=== PATIENT | female | born 1950 | race Caucasian/White ===

== ENCOUNTER 2020-11-23 10:38 | Outpatient (CLI) | payer MEDICARE, SELFPAY ==
--- NOTE | 2020-11-23 10:58 | MR_ITS ---
WS: [id number] MRI HEAD WITHOUT CONTRAST TECHNIQUE: Sagittal T1, T2 axial, T2 axial FLAIR, axial and coronal T1 images, axial susceptibility w eighted imaging, axial diffusion weighted images, and coronal T2 images were obtained. CLINICAL INFORMATION: MILD COGNITIVE IMPAIRMENT COMPARISON: CT FINDINGS: No evidence of restricted diffusion to suggest acute ischemia. Ventricular system and basal cisterns are patent. Moderate small vessel changes with moderate parenchymal volume loss. Chronic lacunar infa rct in the left frontal subcortical white matter. A few tiny chronic lacunar infarcts in the cerebell um left greater than right. Normal vascular flow voids at the skull base. No extra-axial fluid collec tions. Paranasal sinuses and mastoid air cells are well aerated. No hemosiderin on the susceptibility weight ed images. Mild symmetric atrophy involving the temporal lobes and hippocampal formations. Normal opt ic chiasm and pituitary infundibulum. Normal cavernous sinuses and Meckel's cave. MR/MR head wo con* [id number] IMPRESSION: 1. No evidence of restricted diffusion to suggest acute ischemia. 2. Moderate small vessel changes with moderate parenchymal volume loss. 3. Chronic lacunar infarct in the left subcortical frontal white matter. 4. Small vessel changes in the cherelle. 5. A few tiny chronic lacunar infarcts in the cerebellum left greater than rig ht. 6. No hemosiderin on susceptibly weighted images. 7. Mild symmetric atrophy involving the temporal lobes and hippocampal formati ons. No asymmetric hippocampal atrophy.
== END 2020-11-23 10:39 | disposition home or self-care (01) ==
LOC: RADWPI 10:46
PROVIDERS: PCP Physician Assistant; Visit Provider Physician Assistant
DX: G31.84 Mild cognitive impairment of uncertain or unknown etiology (principal); I63.81 Other cerebral infarction due to occlusion or stenosis of small artery
CPT/HCPCS: 70551

== ENCOUNTER 2020-12-08 13:39 | Outpatient (CLI) | payer MEDICARE, SELFPAY ==
--- NOTE | 2020-12-08 13:43 | MM_ITS ---
WS: [id number] BILATERAL DIGITAL SCREENING MAMMOGRAPHY WITH CAD CLINICAL INFORMATION: SCREENING HISTORY: Screening mammogram. No current complaints. COMPARISON: TECHNIQUE: Bilateral CC and MLO views. FINDINGS: Scattered fibroglandular densities bilaterally. No suspicious focal mass, asymmetry, calcifications, or architectural distortion. No evidence of malignancy. Vascular calcification. MM/[place] [id number] IMPRESSION: BI-RADS: 2-Benign FOLLOW UP: 1 Year Follow-up Recommend return to annual screening mammography.
--- NOTE | 2020-12-08 14:40 | XR_ITS ---
WS: [id number] DEXA (DUAL ENERGY X-RAY ABSORPTIOMETRY) Bone mineral density was performed using a [email or web address] machine. HISTORY: POST MENOPAUSAL COMPARISON: None available. Lumbar spine BMD (L1-L4): 1.236 g/cm2 T score: 0.5 Z score: 1.6 Total hip BMD: Left: 1.085 g/cm2. T score: 0.6 Z score: 1.6 Right: 1.065 g/cm2. T score: 0.5 Z score: 1.4 10 year probability of a major osteoporotic fracture is 7%. RIGHT convex curvature lumbar spine. XR/XR DEXA axial skeleton* [id number] IMPRESSION: NORMAL BONE MINERAL DENSITY based upon the WHO classification for females.
== END 2020-12-08 13:40 | disposition home or self-care (01) ==
LOC: RADSHAW 13:42
PROVIDERS: PCP Physician Assistant; Visit Provider Physician Assistant
DX: Z12.31 Encounter for screening mammogram for malignant neoplasm of breast (principal); Z78.0 Asymptomatic menopausal state
CPT/HCPCS: 77067; 77080

== ENCOUNTER → 2021-07-08 07:59 | Outpatient (BNVA) | payer MEDICARE, SELFPAY | PROVIDERS: PCP Physician Assistant; Visit Provider Obstetrics & Gynecology | DX: N81.10 Cystocele, unspecified (principal); N81.4 Uterovaginal prolapse, unspecified; N81.6 Rectocele; Z20.822 Contact with and (suspected) exposure to COVID-19 | CPT/HCPCS: 87635 ==

== ENCOUNTER 2021-07-13 09:58 | Observation (INO) | payer MEDICARE, SELFPAY ==
[2021-07-08 10:27] VITALS: BMI 27.9
[2021-07-08 11:35] LABS: Basophils % 0.4 %; Eosinophils # 0.2 10^3/uL (0.0-0.8); Hematocrit 42.7 % (37.0-47.0); Hemoglobin 14.1 g/dL (11.5-15.3); Lymphocytes # 2.2 10^3/uL (0.8-4.8); Lymphocytes % 40.8 %; Mean Corpuscular Hemoglobin 31.5 pg (28.0-34.0); Mean Corpuscular Volume 95.3 fl (81-99); Mean Platelet Volume 9.8 fL (7.4-10.4); Monocytes # 0.5 10^3/uL (0.2-0.9); Monocytes % 8.7 %; Neutrophils # 2.52 10^3/uL (1.8-7.7); Neutrophils % 45.9 %; Nucleated Red Blood Cells % 0 %; Platelet Count 252 10^3/cmm (130-400); Red Blood Count 4.48 10^6/uL (4.1-5.3); Red Cell Distribution Width 12.1 % (12.1-15.1); White Blood Count 5.5 10^3/uL (4.0-10.0)
[2021-07-08 11:42] LABS: Alanine Aminotransferase 16 U/L (0-33); Albumin Level 3.9 g/dL (3.5-5.2); Alkaline Phosphatase 88 IU/L (35-105); Aspartate Amino Transferase 23 U/L (0-32); Blood Urea Nitrogen 12 mg/dL (8-23); Calcium 8.9 mg/dL (8.5-10.5); Carbon Dioxide 26 mmol/L (22-29); Chloride 106 mmol/L (98-107); Creatinine Clr Calc Pharmacy 75.1487; Globulin 3.4 g/dL (1.3-4.6); Glomerular Filtration Rate 71.1 mL/min (90-130); Glucose 76 mg/dL (65-115); Osmolality Calculated 287 mOsm/kg (285-295); Sodium 139 mmol/L (136-145); Total Bilirubin 0.3 mg/dL (0.15-1.2); Total Protein 7.3 g/dL (6.6-8.7)
[2021-07-08 11:52] LABS: Add Urine Microscopic? YES; Bilirubin Urine Neg (Negative); Blood Urine Neg (Negative); Glucose Urine UA Norm (Normal); Ketones Urine Negative (Negative); Leukocyte Esterase Urine 2+ (Negative); Nitrate Urine Negative (Negative); Protein Urine Neg (Negative); Urine Appearance Clear (CLEAR); Urine Color Straw (Yellow); Urobilinogen Urine Norm (Negative); pH Urine 7 (5-7)
[2021-07-08 11:53] LABS: Add Urine Culture? Yes; Bacteria Urine 2+ /hpf; Squamous Epithelial Cell Urine 0-4 /hpf (0-5)
--- NOTE | 2021-07-08 13:40 | P.ANESASSM_ITS ---
Pre-Anesthetic Assessment Pre-Anesthetic Assessment: Height/Weight: Height 1.73 m Weight 83.461 kg Preop Diagnosis: Complete uterine prolapse, cystocele & rectocele stage IV, pelvic pain and Proposed Procedure: Operation Date: 07/13/21 08:15 Proposed Procedures p Total Vaginal Hysterectomy and vaginal vault suspension [id number] n81.4 n81.10 n81.6(Not Applicable) - David Solorio MD s bilateral Salpingo Oophorectomy (Open)(Bilateral) - MD samira Joyner poss Anterior Repair(Not Applicable) - MD samira Joyner poss Posterior Repair(Not Applicable) - David Solorio MD s Possible sub urethral sling(Not Applicable) - David Solorio MD Was Beta Tono taken within 24 hours: N/A Was Clonidine taken within 24 hours: N/A Social: Social History: No alcohol and No tobacco Exam: Pre-Anes Outpt Exam: alert, oriented x 3, clear to auscultation b ilaterally and regular rate & rhythm Airway: Submandibular: WNL Cervical ROM: WNL MP: 2 Dentition: False History/ROS: No significant history except as noted CV/HEM: CV/HEM: Anemia Anesthetic Plan: ASA status: 2 Anesthesia: General Risk of > 500 ml blood loss (7ml/kg in children): Yes, adequate IV access and fluids planned PFSH Anesthesia PFSH: Family History Father CHF (congestive heart failure) Diabetes Hypertension Grandmother Cancer Paternal -- bone cancer Stroke Paternal Family/Other Cancer Paternal Uncle -- unsure Ovarian cyst Maternal Aunt Family/Other Cancer Maternal Aunt -- unsure if it was cervical, ovarian or uterine cancer Sister Chronic kidney disease (CKD) Diabetes Sister Diabetes Thyroid disease Mother Hypertension Thyroid disease Brother Stroke Brother Stroke Grandfather Stroke Paternal Denies family history of Clotting disorder Hyperlipidemia Bleeding disorder Data Anesthesia CBC & Chem 7: 07/08/21 11:17 07/08/21 11:17 Other Labs: Laboratory Results - last 48 hr 07/08/21 07/08/21 07/08/21 10:40 11:17 11:17 WBC 5.5 RBC 4.48 Hgb 14.1 Hct 42.7 MCV 95.3 MCH 31.5 MCHC 33.0 RDW 12.1 Plt Count 252 MPV 9.8 Neut % (Auto) 45.9 Lymph % (Auto) 40.8 [place] % (Auto) 8.7 Eos % (Auto) 4.0 Baso % (Auto) 0.4 Neut # (Auto) 2.52 Lymph # (Auto) 2.2 [place] # (Auto) 0.5 Eos # (Auto) 0.2 Baso # (Auto) 0.0 Nucleated RBC % (auto) 0 Nucleated RBCs # 0.0 Sodium 139 Potassium 4.0 Chloride 106 Carbon Dioxide 26 Anion Gap 11.0 BUN 12 Creatinine 0.8 GFR Calculation 71.1 L Glucose 76 Calculated Osmolality 287 Calcium 8.9 Total Bilirubin 0.3 AST 23 ALT 16 Alkaline Phosphatase 88 Total Protein 7.3 Albumin 3.9 Globulin 3.4 Urine Color Straw Urine Appearance Clear Urine pH 7 Ur Specific [place] 1.000 L Urine Protein Neg Urine Glucose (UA) Norm Urine Ketones Negative Urine Blood Neg Urine Nitrate Negative Urine Bilirubin Neg Urine Urobilinogen Norm Ur Leukocyte Esterase 2+ H Urine RBC None Urine WBC 10-15 H Ur Squamous Epith Cells 0-4 H Amorphous Sediment Not Reportable Urine Bacteria 2+ H Cardiac Studies: No Data to Display
[2021-07-13] VITALS (19 sets, daily range): BP systolic 116–162; BP diastolic 59–86; PULSE 57–80; RESP 8–20; TEMP 36.4–36.8; O2SAT 91–99
[2021-07-13] MEDS: sodium chloride 0.9% 1,000 ML 30 ML IV (06:30)
[2021-07-13] MEDS: scopolamine 1.5 Patch 1 PATCH TRANSDERMA (06:30)
--- NOTE | 2021-07-13 06:37 | P.ANESUD_ITS ---
Pre-Anesthetic Update Pre-Anesthetic Assessment: Date of Surgery/Procedure: 07/13/21 Preop Abbie gnosis: Complete uterine prolapse, cystocele & rectocele stage IV, pelvic pain and Proposed Procedure: Operation Date: 07/13/21 07:00 Proposed Procedures p Total Vaginal Hysterectomy and vaginal vault suspension [id number] 20790 n81.4 n81.10 n81.6(Not Applicable) - Lisandra Ramos MD s bilateral Salpingo Oophorectomy (Open)(Bilateral) - Lisandra Ramos MD s poss Anterior Repair(Not Applicable) - David Solorio MD s poss Posterior Repair(Not Applicable) - David Solorio MD s Possible sub urethral sling(Not Applicable) - David Solorio MD Any changes to Pre-Anesthetic Assessment?: No Last Intake: Intake Last Liquid Date 07/12/21 Last Liquid Time 20:00 Last Solid Date 07/12/21 Last Solid Time 20:00 Vitals: Temperature 97.9 F 07/13/21 06:10 Temperature Source Temporal Artery S can 07/13/21 06:10 Pulse Rate 79 07/13/21 06:10 Respiratory Rate 18 07/13/21 06:10 Pulse Oximetry 95 07/13/21 06:10 Oxygen Delivery Me thod 07/13/21 06:10 Exam: Pre-Anes Outpt Exam: alert, oriented x 3, clear to auscultation bilaterally and regular rate & rhythm Cardiac Studies: No Data to Display
--- NOTE | 2021-07-13 06:44 | P.HP_ITS ---
Providers/Chief Complaint Primary Care Provider: Kaitlynn Taylor Chief Complaint: Total vaginal hsyterectomy, bilateral salpingo-oop History of Present Illness Katelynn Westbrook is a 71 year old female who first saw me in april with complaints of bladder protrusion. She reports that she has been having spotting for about three months. The last couple of days had been a little heavier. She had a normal ultrasound and normal pap smear. She's never had an abnormal. She reports that her biggest complaint is low pelvic cramping that radiates to her back. She was found to have third degree prolapse and has been scheduled for a total vaginal hysterectomy with bilateral salpingoophorectomy, possible anterior and or posterior repair, mid urethral sling and Dr. Solorio will be performing a sacrospinous ligament fixation. She has been scheduled for surgery on 07/13/21 Review of Systems General: Reports: 10 or more systems reviewed and unremarkable except in HPI and below Medications/Allergies Home Medications Medication Instructions Recorded Confirmed Last Taken Type cholecalciferol (vitamin D3) 25 25 mcg PO DAILY 05/02/21 07/13/21 07/12/21 History mcg (1,000 unit) capsule aelbolhz-qinwhjf-pbxk-iron 18 1 tab PO DAILY tab 05/02/21 07/13/21 07/12/21 History mg-FA 400 mcg-vit K 25 mcg tablet cyanocobalamin (vitamin B-12) 50 50 mcg PO DAILY 07/08/21 07/13/21 07/12/21 History mcg tablet Allergies Allergy/AdvReac Type Severity Reaction Status Date / Time No Known Allergies Allergy Verified 07/13/21 06:06 PFSH Acute PFSH: Family History Father CHF (congestive heart failure) Diabetes Hypertension Grandmother Cancer Paternal -- bone cancer Stroke Paternal Family/Other Cancer Paternal Uncle -- unsure Ovarian cyst Maternal Aunt Family/Other Cancer Maternal Aunt -- unsure if it was cervical, ovarian or uterine cancer Sister Chronic kidney disease (CKD) Diabetes Sister Diabetes Thyroid disease Mother Hypertension Thyroid disease Brother Stroke Brother Stroke Grandfather Stroke Paternal Denies family history of Clotting disorder Hyperlipidemia Bleeding disorder Vitals/I&O/Wt Last Vital Signs Temp 97.9 F 07/13/21 06:10 Pulse 79 07/13/21 06:10 Resp 18 07/13/21 06:10 Pulse Ox 95 07/13/21 06:10 Physical Exam Const: COMMON NORMALS: no acute distress, average body habitus, patient oriented x3, no limitations, healthy appearing, alert and well nourished GENERAL APPEARANCE: cooperative, comfortable, well kempt and well developed ORIENTATION/CONSCIOUSNESS: Yes awake, Yes oriented to person, Yes oriented to place and Yes oriented to time Neck/C-Spine: COMMON NORMALS: full ROM and supple Resp: COMMON NORMALS: normal respiratory effort and clear to auscultation bilaterally EFFORT & INSPECTION: Yes able to speak in complete sentences Cardio: COMMON NORMALS: regular rate and regular rhythm GI: COMMON NORMALS: Normal to inspection, nondistended, normoactive bowel sounds present, Soft to palpation and non-tender : COMMON NORMALS: Yes normal external appearance, Yes normal appearance of the vagina, Yes normal appearance of the cervix, Yes normal bimanual exam, Yes No adnexal tenderness and Yes no masses PELVIC SUPPORT: Cystocele: 3rd degree, Rectocele: 3rd degree and Uterine prolapse: 3rd degree Extremity: COMMON NORMALS: no clubbing, cyanosis or edema and no calf tenderness Psych: COMMON NORMALS: mental status grossly normal, Normal thought process present, cooperative, normal affect and speech normal APPEARANCE: Yes grossly normal and Yes well kempt ATTITUDE: Yes calm and Yes engaged ACTIVITY/MOTOR BEHAVIOR: Yes appropriate eye contact SPEECH: Yes normal speech Data : 07/08/21 11:17 07/08/21 11:17 A&P Assessment and plan (1) Complete uterine prolapse: Plan total vaginal hysterectomy with bilateral salpingoophorectomy, mid urethral sling, possible anterior and or posterior repair. Dr Solorio will be performing a sacrospinous ligament fixation. Risks, benefits and alternatives to procedure were discussed with the patient including but not limited to: pain, bleeding, infection, development of a blood clot or pulmonary embolism, damage to bowel, bladder, ureters, blood vessels, formation of scar tissue or even . . These are the most common complications, but there may be other, unforseen complications that could arise during surgery. The patient accepts these risks and desires to proceed. Status: Acute Attestations Medical Necessity Statement*: The patient should only require one night in the hospital Coding Level of Care Code Acute Bag Machine Helper for Chg Fwd Diagnoses Complete uterine prolapse N81.3
[2021-07-13] MEDS: ceFOXitin 2,000 MG in sodium chloride 0.9% (plus) 50 ML 100 MG IV (07:05)
[2021-07-13] MEDS: vasopressin 20 unit/mL INJ 4 UNIT INJECTION (08:00)
--- NOTE | 2021-07-13 10:09 | P.OP_ITS ---
Operative Report Date of procedure: July 13, 2021 Pre-op Diagnosis: Complete uterine prolapse, cystocele & rectocele stage IV, pelvic pain and Procedure Done: Anterior colporrhaphy augmented with allograft. Single incision midurethral sling Posterior colporrhaphy. Sacrospinous ligament fixation. CYstoscopy. Implants: Coloplast Altis single incision midurethral sling Surgeon: David Solorio MD Estimated blood loss (mL): 30 IV fluids (mL): 1,500 Procedure: After the total vaginal hysterectomy and bilateral salpingo- oophorectomy was performed by Dr. Ramos and vaginal cuff was closed. I proceeded to perform anterior colporrhaphy with single incision mid urethral sling and posterior colporrhaphy with sacrospinous fixation. The anterior vaginal mucosa beneath the midurethra was infiltrated with 0.5% Marcaine with epinephrine. A vertical midline incision was made beneath the midurethra, nearly 1.5 cm length. Careful submucosal dissection was performed bilaterally up to the interior portion of the inferior pubic ramus. The insertion of adductor longus tendon on the patient?s pubic ramus was identified as reference land graeme. Palpated the notch along the internal edge of ischiopubic ramus where the adductor longus tendon and the inferior pubic ramus meet. The Altis single incision sling (SIS) was selected. With thin porcine graft the mesh of the sling was lined anteriorly and posteriorly with the graft. Then the needle of the Coloplast Altis SIS inserted aiming at the location of this notch. One of the integrated self-fixating tips place onto the needle by sliding it over the end of the needle. The needle/sling assembly was inserted toward the location of identified reference notch making sure that the flat of the handle is perpendicular to the desired path. The needle was tracked along the posterior surface of the ischiopubic ramus until the midline graeme on the mesh is approximately at the midline position under the urethra. The needle was removed and the same was repeated on the contralateral side until the appropriate sling tension under the urethra was achieved ensuring that the mesh lays flat. The needle was removed and vaginal incision was closed in a running interlocking fashion with 2-0 Vicryl. The vaginal mucosa was then injected in the midline with normal saline. The vaginal mucosa was scored in the midline with the Bovie approximately 1 cm medial to the urethral meatus to 1 cm distal to the vaginal cuff. This vaginal mucosa was then undermined and then incised in the midline with the Metzenbaum scissors. The lateral aspects of the vaginal mucosa were then grasped with the Allis clamps and the vaginal mucosa was then dissected off the underlying fascia with the Metzenbaum scissors. Again, there was noted to be quite a bit of oozing at the incision, which was controlled with cautery. After adequate dissection was performed, bilaterally. A Coloplast allograft was modified at time of application to fit spacea, 3 x 4 cm piece . Coloplast allograft placed in front of cystocele ready to be implanted with the Basement Membrane facing the vagina mucosa. Suture is placed at distal end of graft and placed towards vaginal cuff. Final suture is placed on proximal portion of the graft to complete the placement overlying the bladder. Then Interrupted vertical mattress sutures of 0 Vicryl were used to elevate the cystocele superiorly. The excessive vaginal mucosa was then trimmed with the Metzenbaum scissors and the vaginal mucosa was then reapproximated in the running interlocking fashion with 2-0 Vicryl. Then proceeded to performe the posteriorcolporrhaphy and sacrospinous fixation. Posterior colpoperineorrhaphy was performed with Allis clamps to grasp hymenal caruncles to allow 2-3 fingerbreadths caliber; infiltrated with 1% Lidocaine with epinephrine before triangular incision to excise fibrotic subdermal rectovaginal tissue from old perineal laceration. Fascia dissected off towards vaginal cuff and deemed weakened and thinned-out in midline; colporrhaphy performed with interrupted mattress 0-Vicryl sutures towards perineal body after a separate crown stitch with 0-Vicryl performed. Field irrigated; hemostasis secured before vaginal incision closed running-locked with 3-0 Vicryl. The posterior vaginal mucosa is opened in the routine fashion as described previously in Posterior Repair. A finger is inserted through the incision in the posterior vaginal mucosa, dissecting out the rectovaginal space (RVS). The right rectal pillar (RRP) is identified. The rectal pillar can be bluntly perforated either with the finger or with the tip of a long Kaitlynn clamp. A Ela retractor is used for exposing the rectovaginal space in order to enter the pararectal space with retraction of the cardinal ligament, vagina, and rectum. Displacing the rectum to the left and the cardinal ligament and ureter anteriorly. A sponge dissector is used to bluntly dissect the sacrospinous ligament removing areolar tissue. The ischial spine was palpated directly, and a area approximately 2 cm medial to the spine was selected for insertion of the Anchorsure transvaginal sacrospinous fixation system. One end of the suture of Anchoresure system inserted through the sacrospinous ligament is placed through the muscular layer of the vagina. In a similar manner, the second suture is placed. The opposite end of the suture in the sacrospinous ligament is left free and held on a small hemostat. Then traction on this suture will draw the vaginal vault directly to the ligament, where a square knot affixes it to the sacrospinous ligament. After the denice stich is tied the second safety stich is tied. Then the colporrhaphy/vaginal repair is carried out in routine fashion. Then the Butts catheter was removed and cystoscope was inserted. The bladder was filled with sterile water. Complete evaluation of the bladder mucosa was performed noting no lacerations, dimpling, tears, bleeding of the mucosa or muscular layers. Both ureteral orifices were identified. Prompt excretion of urine from both ureteral orifices was noted. Cystoscope was withdrawn. The Butts catheter was replaced. Excellent hemostasis was obtained.
--- NOTE | 2021-07-13 10:10 | PM.OP ---
Operative Report Date of procedure: July 13, 2021 Pre-op Diagnosis: Complete uterine prolapse, cystocele & rectocele stage IV, pelvic pain and Post-op diagnosis: same Post-op Findings: complete uterine prolapse Procedure Done: total vaginal hysterectomy, right salpingoophorectomy, cystoscopy Specimens removed/disposition: uterus and right fallopian tube and ovary to pathology Surgeon: Lisandra Ramos Anesthesia: General Estimated blood loss (mL): 20 IV fluids (mL): 1,500 Urine output (mL): 850 Complications: none Condition: stable Disposition: floor Procedure: The patient was taken to the operating room where general anesthesia was administered and found to be adequate. She was prepped and draped in the normal sterile fashion in the dorsal lithotomy position in [facility]. A Butts catheter was placed. A weighted speculum was placed into the vagina and the anterior and posterior lip of the cervix was grasped with a Varma tenaculum. 10 mL of dilute Pitressin was injected at the vesicovaginal junction. A circumferential incision was made at the vesicovaginal junction and the vaginal mucosa reflected cephalad. The posterior peritoneum was entered sharply with the Metzenbaum scissors and the long weighted speculum replaced. Using the Roly clamps the uterosacral ligaments were clamped cut and suture-ligated. Then sequentially the uterine arteries and cardinal ligaments were clamped cut and suture-ligated. A single-tooth tenaculum was used to deliver the uterus. The utero-ovarian ligaments were clamped cut and suture-ligated bilaterally and the specimen was removed. The bilateral fallopian tubes and ovaries were visualized and found to be normal. The peritoneum was closed with a pursestring using 2-0 Vicryl. The vaginal cuff was closed with 0 Vicryl in a running locked pattern incorporating the uterosacral ligaments into the lateral aspects of the vaginal cuff. See Dr Solorio's note for his portion of the procedure. The Butts catheter was removed and the cystoscope advanced into the bladder. The patient was given indigo carmine and bilateral spill was noted. There were no injuries or deficits noted in the bladder. The cystoscope was removed and the Butts was replaced. Vaginal packing was placed for good hemostasis. Tolerated the procedure well. Sponge lap and needle counts were correct x3. She was taken to the recovery room in stable condition.
--- NOTE | 2021-07-13 10:23 | SUR.PHASEI ---
PT JUST NOW AWAKES TO VOICE , ORAL AIRWAY OUT , GOOD RESP EFFORT NOTED PT VERBALLY DENIES PAIN AND NAUSEA, ABD SOFT WITH TULIO PAD IN PLACE D/I ACUÑA TO DD WITH BLUE CLEAR URINE NOTED. BILAT SCDS ON AND WORKING
[2021-07-13] MEDS: ondansetron 2 mg/ML SDV 2 mL 4 MG IVP ×2 (12:10→16:36)
[2021-07-13] MEDS: ketorolac 30 mg/mL INJ IVP ×2 (12:10→17:54)
[2021-07-13] MEDS: oxyCODONE-APAP 5-325 mg Tablet PO ×2 (12:28→20:26)
--- NOTE | 2021-07-13 13:41 | ANE.PACU2 ---
Inpatient post-anesthesia follow up: Airway intact: Yes Vital signs: Temperature 97.6 F Pulse Rate 67 Respiratory Rate 18 Blood Pressure 122/59 Pulse Oximetry 99 Oxygen Delivery Me thod Nasal Cannula Oxygen Flow Rate 3 Fraction of Inspir ed Oxygen Hydration adequate: Yes Nausea and vomiting: No Pain level: 2 Mental status: Baseline
[2021-07-13] MEDS: dextrose 5%-lactated ringers 1,000 ML 125 ML IV (15:15)
[2021-07-13] MEDS: docusate sodium 100 mg Capsule PO (17:54)
[2021-07-14] MEDS: ketorolac 30 mg/mL INJ IVP (00:35)
[2021-07-14 04:08] VITALS: BP 129/78; PULSE 71; RESP 15; TEMP 36.9
[2021-07-14 05:16] VITALS: RESP 18
[2021-07-14] MEDS: oxyCODONE-APAP 5-325 mg Tablet PO ×2 (05:16→16:48)
[2021-07-14 06:11] LABS: Hematocrit 33.4 % (37.0-47.0); Hemoglobin 11.2 g/dL (11.5-15.3); Mean Corpuscular HGB Conc 33.5 g/dL (30.0-36.0); Mean Corpuscular Hemoglobin 31.6 pg (28.0-34.0); Mean Corpuscular Volume 94.4 fl (81-99); Mean Platelet Volume 10.6 fL (7.4-10.4); Platelet Count 176 10^3/cmm (130-400); Red Blood Count 3.54 10^6/uL (4.1-5.3); Red Cell Distribution Width 12.3 % (12.1-15.1); White Blood Count 10.9 10^3/uL (4.0-10.0)
--- NOTE | 2021-07-14 07:49 | PM.DCS ---
Discharge Providers Date of Admission: 07/13/21 09:58 Date of Discharge: July 14, 2021 Attending Provider at Admission: Lisandra Ramos MD Attending Provider at Discharge: David Solorio MD Primary Care Provider: Kaitlynn Taylor Diagnoses at Discharge Discharge Diagnosis (1) Complete uterine prolapse: Status: Acute Reason for Visit Reason for Visit: Total vaginal hsyterectomy, bilateral salpingo-oop Hospital Course Hospital Course The patient was admitted for surgery. She did well postoperatively and was ready for discharge Physical Exam Narrative: EXAM NARRATIVE: The patient is doing well this morning. No concerns or complaints. Const: COMMON NORMALS: no acute distress, average body habitus and patient oriented x3 GENERAL APPEARANCE: cooperative, comfortable and well kempt ORIENTATION/CONSCIOUSNESS: Yes awake, Yes oriented to person, Yes oriented to place and Yes oriented to time Resp: COMMON NORMALS: normal respiratory effort EFFORT & INSPECTION: Yes able to speak in complete sentences Extremity: COMMON NORMALS: no clubbing, cyanosis or edema and no calf tenderness Neuro: COMMON NORMALS: patient oriented x3 SENSORIUM/ORIENTATION: Yes oriented to person, Yes oriented to place and Yes oriented to time Psych: APPEARANCE: Yes well kempt Urinary Catheter Management^: Butts: Cath Placed During This Visit: yes, but has since been removed by the nurse Reason for Continuing Indwelling Catheter: Decision to DC Catheter Urinary Catheter Date of Insertion: 07/13/21 Urinary Catheter Time of Insertion: 07:40 Date Urinary Catheter Removed: 07/14/21 Time Urinary Catheter Discontinued: 06:50 Discharge Data Data Completed and Pending: Pending at discharge Category Date Time Status ES surgery / GI i mages Routine Exams 07/13/21 09:46 Ordered Pathology: Surgic al [PTH] Routine Pth 07/13/21 10:13 Received Labs from last 24 hours 07/14/21 07/13/21 05:00 07:20 WBC 10.9 H RBC 3.54 L Hgb 11.2 L Hct 33.4 L MCV 94.4 MCH 31.6 MCHC 33.5 RDW 12.3 Plt Count 176 MPV 10.6 H Blood Type AB Positive Rho(D) Type Positive Antibody Screen Negative Vitals: Last Vital Signs Temp 98.5 F 07/14/21 04:08 Pulse 71 07/14/21 04:08 Resp 18 07/14/21 05:16 BP 129/78 07/14/21 04:08 Pulse Ox 95 07/13/21 15:55 Discharge Plan Discharge Patient Disposition: Home Condition: Stable Prescriptions: New oxycodone-acetaminophen 5-325 mg Tablet 1 tab PO Q4H PRN (Reason: Moderate To Severe Pain) Qty: 24 RF: 0 Continued Vitamin B-12 50 mcg tablet 50 mcg PO DAILY RF: 0 cholecalciferol (vitamin D3) 25 mcg (1,000 unit) capsule 25 mcg PO DAILY RF: 0 One-A-Day Women's Complete 18 mg-400 mcg- 25 mcg tablet 1 tab PO DAILY RF: 0 Discharge Orders: Discharge Order (Routine); Ordered 07/14/21 Ordered By: Lisandra Ramos Patient Instructions: Opioid Safety Discharge Attestations Time Spent in Discharge Care*: less than 30 min Quality Metrics Clinical Quality Measures During this hospital stay, did patient experience: None Coding Level of Care Code Acute Chg FW DC note Exam Expanded Problem Focused Diagnoses Complete uterine prolapse N81.3
[2021-07-14] MEDS: ibuprofen 800 mg tablet PO ×2 (10:42→16:49)
[2021-07-14] MEDS: docusate sodium 100 mg Capsule PO ×2 (10:42→16:48)
[2021-07-14 10:45] VITALS: BP 147/72; PULSE 56; RESP 16; TEMP 36.7
[2021-07-14 16:45] VITALS: BP 168/77; PULSE 62; RESP 17; TEMP 36.3; O2SAT 96
[2021-07-14 16:48] VITALS: RESP 17
== END 2021-07-14 16:55 | disposition home or self-care (01) ==
LOC: OBGYN 09:59
PROVIDERS: Admitting Provider Obstetrics & Gynecology; PCP Physician Assistant; Visit Provider Obstetrics & Gynecology
PROC: (CPT 58262; principal; 2021-07-13 07:00)
PROC: (CPT 58720; 2021-07-13 07:00)
PROC: 0JQC0ZZ Repair Pelvic Region Subcutaneous Tissue and Fascia, Open Approach (ICD-10-PCS; CPT 57240; 2021-07-13 07:00)
PROC: (CPT 57250; 2021-07-13 07:00)
PROC: (CPT 57288; 2021-07-13 07:00)
PROC: (CPT 57282; 2021-07-13 07:00)
DX: N81.3 Complete uterovaginal prolapse (principal); Z82.49 Family history of ischemic heart disease and other diseases of the circulatory system; Z83.3 Family history of diabetes mellitus
CPT/HCPCS: 57260; 57282; 57288; 58262; 36415; 51702; 51798; 80053; 81001; 85025; 85027; 86850; 86900; 87086; 88307; 96365; C1713; C1762; G0378; J0360; J0690; J0694; J1100; J1170; J1200; J1885; J2270; J2405; J2704; J2710; J3010; J3490; J7030

== ENCOUNTER → 2021-08-22 14:00 | Outpatient (BNVA) | payer MEDICARE, SELFPAY | PROVIDERS: PCP Physician Assistant; Visit Provider Obstetrics & Gynecology | DX: N90.89 Other specified noninflammatory disorders of vulva and perineum (principal); R30.0 Dysuria; Z98.890 Other specified postprocedural states; R30.9 Painful micturition, unspecified | CPT/HCPCS: 81000; 87077; 87086; 87184 ==

== ENCOUNTER → 2022-10-13 10:21 | Outpatient (BNVA) | payer MEDICARE, SELFPAY | PROVIDERS: PCP Physician Assistant; Visit Provider Obstetrics & Gynecology | DX: R32 Unspecified urinary incontinence (principal); R39.9 Unspecified symptoms and signs involving the genitourinary system | CPT/HCPCS: 81000; 87086 ==

== ENCOUNTER 2022-11-21 14:16 | Outpatient (CLI) | payer MEDICARE, SELFPAY ==
--- NOTE | 2022-11-21 14:28 | MM_ITS ---
WS: [id number] Bilateral screening 3D tomosynthesis digital mammogram, 11/21/2022 Clinical Data: SCREENING Comparison: 12/08/2020, 07/10/2019. Findings: The breast parenchymal pattern shows glandular tissue. No spiculated masses or clustered calcificatio ns are seen. There are no secondary signs of carcinoma. MM/[place] [id number] Impression: 1. Negative bilateral mammogram unchanged. 2. Recommend annual screening mammograms. BIRADS: 1-Negative FOLLOW UP: 1 Year Follow-up The CAD price checker was used.
== END 2022-11-21 14:17 | disposition home or self-care (01) ==
LOC: RAD 14:17
PROVIDERS: PCP Physician Assistant; Visit Provider Family Medicine
DX: Z12.31 Encounter for screening mammogram for malignant neoplasm of breast (principal)
CPT/HCPCS: 77063; 77067

== ENCOUNTER 2023-11-12 13:32 | Outpatient (CLI) | payer MEDICARE, SELFPAY ==
--- NOTE | 2023-11-12 13:34 | XR_ITS ---
WS: [id number] DEXA (DUAL ENERGY X-RAY ABSORPTIOMETRY) Bone mineral density was performed using a Kelan machine. HISTORY: POSTMENOPAUSAL COMPARISON: 12/08/2020 Lumbar spine BMD (L1-L4): 1.251 g/cm2 T score: 0.6 Z score: 1.6 Total hip BMD: Left: 1.087 g/cm2. T score: 0.6 Z score: 1.7 Right: 1.062 g/cm2. T score: 0.4 Z score: 1.5 10 year probability of a major osteoporotic fracture is 11.8%. Compared to the prior study from 12/08/2020. Lumbar spine bone mineral density has increased by 1.2%. Bilateral hips bone mineral density is unchanged. IMPRESSION: NORMAL BONE MINERAL DENSITY based upon the WHO classification for females. No significant change sinc e the prior examination.
== END 2023-11-12 13:33 | disposition home or self-care (01) ==
LOC: RAD 13:32
PROVIDERS: PCP Physician Assistant; Visit Provider Family Medicine
DX: Z78.0 Asymptomatic menopausal state (principal)
CPT/HCPCS: 77080

== ENCOUNTER → 2024-09-04 08:30 | Outpatient (BNVA) | payer MEDICARE, SELFPAY | PROVIDERS: PCP Physician Assistant; Visit Provider Podiatrist Foot & Ankle Surgery | DX: L60.0 Ingrowing nail (principal); L60.3 Nail dystrophy; L60.8 Other nail disorders; I73.9 Peripheral vascular disease, unspecified | CPT/HCPCS: 11721; 99203 ==

== ENCOUNTER → 2024-10-16 09:56 | Outpatient (BNVA) | payer MEDICARE, SELFPAY | PROVIDERS: PCP Physician Assistant; Visit Provider Podiatrist Foot & Ankle Surgery | DX: B35.1 Tinea unguium (principal); I73.9 Peripheral vascular disease, unspecified | CPT/HCPCS: 99213 ==

== ENCOUNTER 2024-11-13 10:20 | Outpatient (CLI) | payer MEDICARE, SELFPAY ==
--- NOTE | 2024-11-13 10:24 | MM_ITS ---
WS: [id number] Bilateral screening 3D tomosynthesis digital mammogram, 11/13/2024 10:27 AM Clinical Data: SCREENING Comparison: 11/21/2022, 12/08/2020, 07/10/2019. Findings: No spiculated masses or clustered calcifications are seen. There are no secondary signs of carcinoma . MM/MM scr BI tomosynthesis [id number] Impression: Negative bilateral mammogram unchanged. Recommend annual screening mammograms. BIRADS: 1 - Negative. FOLLOW UP: 1 Year Follow-up DENSITY: There are scattered areas of fibroglandular density. The CAD cargo checker was used
== END 2024-11-13 10:21 | disposition home or self-care (01) ==
LOC: RAD 10:21
PROVIDERS: PCP Physician Assistant; Visit Provider Physician Assistant
DX: Z12.31 Encounter for screening mammogram for malignant neoplasm of breast (principal)
CPT/HCPCS: 77063; 77067

== ENCOUNTER → 2024-12-22 09:24 | Outpatient (BNVA) | payer MEDICARE, SELFPAY | PROVIDERS: PCP Physician Assistant; Visit Provider Podiatrist Foot & Ankle Surgery | DX: B35.1 Tinea unguium (principal); I73.9 Peripheral vascular disease, unspecified | CPT/HCPCS: 11721 ==

== ENCOUNTER → 2025-02-23 09:30 | Outpatient (BNVA) | payer MEDICARE, SELFPAY | PROVIDERS: PCP Physician Assistant; Visit Provider Podiatrist Foot & Ankle Surgery | DX: I73.9 Peripheral vascular disease, unspecified (principal); B35.1 Tinea unguium | CPT/HCPCS: 11721 ==

== ENCOUNTER → 2025-05-25 09:05 | Outpatient (BNVA) | payer MEDICARE, SELFPAY | PROVIDERS: PCP Physician Assistant; Visit Provider Podiatrist Foot & Ankle Surgery | DX: I73.9 Peripheral vascular disease, unspecified (principal); B35.1 Tinea unguium | CPT/HCPCS: 11721 ==

== ENCOUNTER 2025-08-14 14:23 | Outpatient (CLI) | payer MEDICARE, SELFPAY ==
--- NOTE | 2025-08-14 14:36 | XR_ITS ---
WS: [email or web address] SCREENING DEXA SCAN Diplopia CLINICAL INFORMATION: POST-MENOPASUAL COMPARISON: 2022 FINDINGS: The L1-L4 bone mineral density measures 1.259 g/cm2. This corresponds to a T score score of 0.7 and Z score of 1.7. Left femoral neck bone mineral density measures 1.026 g/cm2. This corresponds to a T score of 0.1 and Z score of 1.3. Right femoral neck bone mineral density measures 1.021 g/cm2. This corresponds to a T score 0.1of and Z score of 1.2. Mean femoral neck bone mineral density measures 1.023 g/cm2. This corresponds to a T score of 0.1 and Z score of 1.2. XR/XR DEXA axial skeleton* [id number] IMPRESSION: Normal bone mineralization. Patient's FRAX calculated 10 year probability for major osteoporotic fracture i s 8.1% and osteoporotic hip fracture is 0.8%. Bone density lumbar spine increased 0.6% Bone density femoral necks decreased -4.8%
== END 2025-08-14 14:24 | disposition home or self-care (01) ==
LOC: RAD 14:24
PROVIDERS: PCP Physician Assistant; Visit Provider Physician Assistant
DX: Z78.0 Asymptomatic menopausal state (principal)
CPT/HCPCS: 77080

== ENCOUNTER → 2025-08-24 08:26 | Outpatient (BNVA) | payer MEDICARE, SELFPAY | PROVIDERS: PCP Physician Assistant; Visit Provider Podiatrist Foot & Ankle Surgery | DX: I73.9 Peripheral vascular disease, unspecified (principal); B35.1 Tinea unguium; L60.8 Other nail disorders | CPT/HCPCS: 11721 ==

== ENCOUNTER 2025-11-16 09:50 | Outpatient (CLI) | payer MEDICARE, SELFPAY ==
--- NOTE | 2025-11-16 09:55 | MM_ITS ---
WS: [email or web address] BILATERAL SCREENING DIGITAL TOMOSYNTHESIS MAMMOGRAM WITH CAD HISTORY: SCREENING COMPARISON: 11/13/2024, 11/21/2022 Bilateral CC and MLO views with tomosynthesis and synthetic mammography submitted. Computer aided detection analyzed. Breast composition: There are scattered areas of fibroglandular density. No suspicious masses, microcalcifications or architectural distortion. Benign calcifications in each breast. MM/MM scr BI tomosynthesis [id number] IMPRESSION: BI-RADS: 2 - Benign. FOLLOW UP: 1 Year Follow-up
== END 2025-11-16 09:51 | disposition home or self-care (01) ==
LOC: RAD 09:50
PROVIDERS: PCP Physician Assistant; Visit Provider Physician Assistant
DX: Z12.31 Encounter for screening mammogram for malignant neoplasm of breast (principal); R92.323 Mammographic fibroglandular density, bilateral breasts; R92.1 Mammographic calcification found on diagnostic imaging of breast
CPT/HCPCS: 77063; 77067

== ENCOUNTER → 2025-11-23 08:24 | Outpatient (BNVA) | payer MEDICARE, SELFPAY | PROVIDERS: PCP Physician Assistant; Visit Provider Podiatrist Foot & Ankle Surgery | DX: I73.9 Peripheral vascular disease, unspecified (principal); B35.1 Tinea unguium; L84 Corns and callosities; L60.8 Other nail disorders | CPT/HCPCS: 11056; 11721 ==